=== PATIENT | female | born 1970 | race Caucasian/White ===

== ENCOUNTER 2017-02-08 08:51 | Emergency (ER) | payer OTHER ==
[~2017-02-08] VITALS: Ht 152.4 cm; Wt 56.3 kg
[~2017-02-08 08:51] MED LIST: CEPH-443 PO; CLOT30CR24 TOP; NITR-58 PO; PHEN-538 PO
[2017-02-08 08:54] VITALS: Ht 152.4 cm; Wt 56.3 kg
[2017-02-08] MEDS ORDERED: D-ME473S18 PO (10:50)
[2017-02-08] MEDS ORDERED: IBUP400T22 PO (10:52)
[2017-02-08] MEDS ORDERED: AZIT250T94 PO (10:52)
--- NOTE | 2017-02-08 10:53 | ERD ---
ER Documentation Chief Complaint Date/Time DATE: 02/08/17 TIME: 10:52 Chief Complaint COUGH X 2 WEEKS HPI This 46-year-old female presents with cough congestion for last 2 weeks. Denies fevers. Denies vomiting, abdominal pain, chest pain, shortness of breath. ROS All systems reviewed and are negative except as per history of present illness. Medications Home Meds Active Scripts Azithromycin* (Zithromax*) 250 Mg Tablet, 250 MG PO .ZPACK DIRECTED, #6 TAB TAKE 500 MG (2 TABS) THE FIRST DAY THEN 250 MG (1 TAB) DAYS 2-5 Prov:ERICKA ESCAMILLA MD 02/08/17 Ibuprofen* (Motrin*) 400 Mg Tab, 400 MG PO Q6, #15 TAB Prov:ERICKA ESCAMILLA MD 02/08/17 Dextromethorphan Hb-Promethazine Hcl (Promethazine DM Syrup) 473 Ml Syrup, 5 ML PO Q6H Y for COUGH, #4 OZ Prov:ERICKA ESCAMILLA MD 02/08/17 Cephalexin* (Keflex*) 500 Mg Capsule, 500 MG PO QID for 5 Days, CAP Prov:ERICKA ESCAMILLA MD 08/07/16 Clotrimazole* (Clotrimazole* AF) 1% - 30 Gm Cream.gm., 1 APPLIC TOP BID for 7 Days, TUB Prov:IMER WEBER NP 06/05/16 Phenazopyridine Hcl* (Pyridium*) 200 Mg Tab, 200 MG PO TID Y for URINARY PAIN, # 6 TAB Prov:IMER WEBER NP 06/05/16 Nitrofurantoin Monohyd Macrocr* (Macrobid*) 100 Mg Capsr, 100 MG PO BID for 7 Days, CAP Prov:IMER WEBER NP 06/05/16 Allergies Allergies: Coded Allergies: No Known Allergy (Verified , 05/15/10) PMhx/Soc History of Surgery: Yes ( section) Anesthesia Reaction: No Hx Neurological Disorder: No Hx Respiratory Disorders: No Hx Cardiac Disorders: No Hx Psychiatric Problems: No Hx Miscellaneous Medical Probl: No Hx Alcohol Use: Yes (occasionally) Hx Substance Use: No Hx Tobacco Use: No Physical Exam Vitals Vital Signs Date Time Temp Pulse Resp B/P Pulse Ox O2 Delivery O2 Flow Rate FiO2 02/08/17 08:54 98.1 84 18 126/57 99 Physical Exam Const: [] Alert, [id number] per Head: Atraumatic Eyes: Normal Conjunctiva ENT: Normal External Ears, Nose and Mouth. TMs are decreased light reflex but no significant redness. Oropharynx appears normal Neck: Full range of motion..~ No meningismus. Resp: Clear to auscultation bilaterally. Slight rhonchi without rales, wheezing or retractions. Cardio: Regular rate and rhythm, no murmurs Abd: Soft, non tender, non distended. Normal bowel sounds Skin: No petechiae or rashes Back: No midline or flank tenderness Ext: No cyanosis, or edema Neur: Awake and alert Psych: Normal Mood and Affect Procedures/MDM Patient presents with URI symptoms for last 2 weeks was slightly productive cough without evidence of respiratory distress, hypoxemia.. She may have a lingering viral illness but given the duration and patient request will be treated empirically with Zithromax, promethazine and ibuprofen. The patient was stable with no new complaints during the ER course. Clinically, there is no current evidence to suggest meningitis, sepsis, acute abdomen, pneumonia, acute coronary syndrome, pulmonary embolism, or any other emergent condition appearing to require further evaluation or hospitalization. The patient should certainly return for any new or worsening symptoms per the aftercare instructions. They should otherwise follow-up with her primary care doctor for reevaluation this week. Departure Diagnosis: Primary Impression: Cough Condition: Stable Patient Instructions: Acute Bronchitis Additional Instructions: Recheck for new or worsening symptoms or primary care doctor. ERICKA ESCAMILLA MD Feb 08, 2017 10:53
== END 2017-02-08 11:05 | disposition home or self-care (01) ==
LOC: FTE 08:51
DX: R05 Cough (principal)
CPT/HCPCS: 99284

== ENCOUNTER 2017-10-03 08:22 | Emergency (ER) | payer OTHER ==
[~2017-10-03] VITALS: Ht 160 cm; Wt 60.2 kg
[~2017-10-03 08:22] MED LIST changes: +AZIT250T94 PO; +D-ME473S18 PO; +IBUP400T22 PO
[2017-10-03 08:23] VITALS: Ht 160 cm; Wt 60.2 kg
--- NOTE | 2017-10-03 08:52 | ERD ---
ER Documentation Chief Complaint Chief Complaint fever , cough , st ,ear pain x 2 days HPI 47y/o female patient previously healthy presents to the emergency department c/ o 7 days with progressive onset of acute respiratory symptoms including: productive cough, runny nose, chest congestion, wheezing, headache and general malaise. The patient has been taking OTC with mild relief of her symptoms, therefore is requesting a prescription for antibiotics Denies fever, chills, SOB, no chest pain or palpitations ROS SYSTEMIC symptoms: Subjective fever, chills, no night sweats, no weight loss EYE symptoms: No blurred vision, no eye discharge OTOLARYNGEAL symptoms: No hearing loss. No ear pain, no sore throat CARDIOVASCULAR symptoms: No chest pain or discomfort, no palpitations. PULMONARY symptoms: No dyspnea, dry cough cough, no wheezing. GASTROINTESTINAL symptoms: No abdominal pain, no nausea, no vomiting, no diarrhea MUSCULOSKELETAL symptoms: No arthralgias, no muscle aches. NEUROLOGY symptoms: No confusion, no syncope, no numbness or tingling. SKIN no rashes All systems reviewed and are negative except as per history of present illness. Medications Home Meds Active Scripts Prednisone (Prednisone) 20 Mg Tablet, 20 MG PO DAILY for 3 Days, TAB Prov:MARIA ISABEL STOVALL MD 10/03/17 Promethazine HCl/Codeine (Prometh-Codein 6.25-10 mg/5 ml) 5 Ml Syrup, 5 ML PO QHS for COUGH, #120 ML Prov:MARIA ISABEL STOVALL MD 10/03/17 Azithromycin* (Zithromax*) 250 Mg Tablet, 250 MG PO .SigifredoPAGAURI DIRECTED, #6 TAB TAKE 500 MG (2 TABS) THE FIRST DAY THEN 250 MG (1 TAB) DAYS 2-5 Prov:MARIA ISABEL STOVALL MD 10/03/17 Azithromycin* (Zithromax*) 250 Mg Tablet, 250 MG PO .SigifredoPAGAURI DIRECTED, #6 TAB TAKE 500 MG (2 TABS) THE FIRST DAY THEN 250 MG (1 TAB) DAYS 2-5 Prov:ERICKA ESCAMILLA MD 02/08/17 Ibuprofen* (Motrin*) 400 Mg Tab, 400 MG PO Q6, #15 TAB Prov:ERICKA ESCAMILLA MD 02/08/17 Dextromethorphan Hb-Promethazine Hcl (Promethazine DM Syrup) 473 Ml Syrup, 5 ML PO Q6H Y for COUGH, #4 OZ Prov:ERICKA ESCAMILLA MD 02/08/17 Cephalexin* (Keflex*) 500 Mg Capsule, 500 MG PO QID for 5 Days, CAP Prov:ERICKA ESCAMILLA MD 08/07/16 Clotrimazole* (Clotrimazole* AF) 1% - 30 Gm Cream.gm., 1 APPLIC TOP BID for 7 Days, TUB Prov:IMER WEBER NP 06/05/16 Phenazopyridine Hcl* (Pyridium*) 200 Mg Tab, 200 MG PO TID Y for URINARY PAIN, # 6 TAB Prov:IMER WEBER NP 06/05/16 Nitrofurantoin Monohyd Macrocr* (Macrobid*) 100 Mg Capsr, 100 MG PO BID for 7 Days, CAP Prov:IMER WEBER NP 06/05/16 Allergies Allergies: Coded Allergies: No Known Allergy (Verified , 05/15/10) PMhx/Soc History of Surgery: Yes ( section X3) Anesthesia Reaction: No Hx Neurological Disorder: No Hx Respiratory Disorders: No Hx Cardiac Disorders: No Hx Psychiatric Problems: No Hx Miscellaneous Medical Probl: No Hx Alcohol Use: Yes (occasionally) Hx Substance Use: No Hx Tobacco Use: No Smoking Status: Never smoker Physical Exam Vitals Vital Signs Date Time Temp Pulse Resp B/P Pulse Ox O2 Delivery O2 Flow Rate FiO2 10/03/17 09:38 71 18 128/62 100 Room Air 10/03/17 08:23 97.7 85 18 129/62 100 Physical Exam Patient is in no acute distress, vital signs stable. Alert and fully oriented. EYES: PERRLA, EOMI, Sclera and conjunctiva appear normal. EARS: Canals clear, tympanic membranes WNL THROAT: Normal oropharynx. NECK: Supple, No lymphadenopathy. Full ROM without pain or tenderness. HEART: RRR, no rubs, murmurs, clicks or gallops. LUNGS: Mild bibasilar rhonchi to auscultation. ABDOMEN: Soft, non-tender without masses or hepatosplenomegaly. EXTREMITIES: No edema bilaterally. MUSC: Full ROM, no deformity, normal back exam Procedures/MDM 47y/o female patient previously healthy, presents to the ED c/o worsening of respiratory symptoms for 7 days. Vital signs stable, Physical exam unremarkable except for mild rhonchi. Differential diagnosis include but not limited to: Bronchitis, URI, pneumonia, reactive airway disease. Physical examination and clinical presentation consistent most likely with URI, antibiotics not indicated at this time the patient was informed that most likely is a viral etiology but the patient insisted for a prescription for antibiotics. During the ED course the patient remained stable Results and medical impression discussed with patient. The patient will be discharged home with a Rx for azithromycin, promethazine with codeine. Side effects of prescribed narcotic medications (drowsiness, constipation, habituation) were reviewed. If symptoms persist, worsen or new symptoms develop, then patient is instructed to follow-up with the primary care provider. If the patient is unable to see the primary care provider, then return to the ED immediately. Departure Diagnosis: Primary Impression: Acute wheezy bronchitis Additional Impression: Abnormal respiratory sounds Condition: Stable Additional Instructions: Thank you very much for allowing us to participate in your care. Your health and safety is our top priority at [facility]. Have prescriptions filled and follow precisely the directions on the label. Follow-up with primary care provider during the next 4 days and bring all the information and medications prescribed. If illness has not improved in 2 days, then make an appointment with primary care provider. If the provider is unavailable, return to the Emergency Department immediately. MARIA ISABEL STOVALL MD Oct 03, 2017 08:52
[2017-10-03] MEDS ORDERED: PRED20TA PO (09:20)
[2017-10-03] MEDS ORDERED: AZIT250T94 PO (09:20)
[2017-10-03] MEDS ORDERED: PROM5SYR2 PO (09:20)
[2017-10-03 09:38] VITALS: BP 128/62; PULSE 71; RESP 18
== END 2017-10-03 09:40 | disposition home or self-care (01) ==
LOC: FTE 08:22
DX: J20.9 Acute bronchitis, unspecified (principal)
CPT/HCPCS: 99284

== ENCOUNTER 2018-11-25 12:21 | Emergency (ER) | payer OTHER ==
[~2018-11-25] VITALS: Ht 167.6 cm; Wt 63.2 kg
[~2018-11-25 12:21] MED LIST changes: +AZIT250T PO; -AZIT250T94 PO; +IBUP-1561 PO; -IBUP400T22 PO; +PRED20TA PO; +PROM5SYR2 PO
[2018-11-25 12:23] VITALS: BP 127/78; PULSE 85; RESP 20; Ht 167.6 cm; Wt 63.2 kg
[2018-11-25] MEDS ORDERED: LIDOCAINE 1% (MDV) 20 ML INJ SC ONE (13:00)
[2018-11-25] MEDS ORDERED: DIPHTH/TET/ACEL PERTUSS (ADULT) 0.5 ML VIAL IM* ONE (13:00)
[2018-11-25] MEDS ORDERED: CEPH-443 PO (14:39)
--- NOTE | 2018-11-25 14:48 | ERD ---
ER Documentation Chief Complaint Chief Complaint Complains of laceration to the left pinky finger HPI Patient is a 48-year-old female who presents the ER for concerns of a laceration to her left fifth digit. Patient states laceration occurred yesterday while opening a can around 2 PM. Patient states she was not able to come in for laceration yesterday given that she was unable to leave her family for the holidays. Patient denies any numbness or tingling. Patient is right-hand dominant. Patient denies any fevers or chills. Patient denies any previous fractures or dislocations. No recent travel. Patient does not recall her last tetanus vaccination. ROS All systems reviewed and are negative except as per history of present illness. Medications Home Meds Active Scripts Cephalexin* (Keflex*) 500 Mg Capsule, 500 MG PO BID for 7 Days, CAP Prov:MARC CUTLER PA-C 11/25/18 Prednisone (Prednisone) 20 Mg Tablet, 20 MG PO DAILY for 3 Days, TAB Prov:MARIA ISABEL STOVALL MD 10/03/17 Promethazine HCl/Codeine (Prometh-Codein 6.25-10 mg/5 ml) 5 Ml Syrup, 5 ML PO QHS for COUGH, #120 ML Prov:MARIA ISABEL STOVALL MD 10/03/17 Azithromycin* (Zithromax*) 250 Mg Tablet, 250 MG PO .ZPACK DIRECTED, #6 TAB TAKE 500 MG (2 TABS) THE FIRST DAY THEN 250 MG (1 TAB) DAYS 2-5 Prov:MARIA ISABEL STOVALL MD 10/03/17 Azithromycin* (Zithromax*) 250 Mg Tablet, 250 MG PO .ZPACK DIRECTED, #6 TAB TAKE 500 MG (2 TABS) THE FIRST DAY THEN 250 MG (1 TAB) DAYS 2-5 Prov:ERICKA ESCAMILLA MD 02/08/17 Ibuprofen* (Motrin*) 400 Mg Tab, 400 MG PO Q6, #15 TAB Prov:ERICKA ESCAMILLA MD 02/08/17 Dextromethorphan Hb-Promethazine Hcl (Promethazine DM Syrup) 473 Ml Syrup, 5 ML PO Q6H PRN for COUGH, #4 OZ Prov:ERICKA ESCAMILLA MD 02/08/17 Cephalexin* (Keflex*) 500 Mg Capsule, 500 MG PO QID for 5 Days, CAP Prov:ERICKA ESCAMILLA MD 08/07/16 Clotrimazole* (Clotrimazole* AF) 1% - 30 Gm Cream.gm., 1 APPLIC TOP BID for 7 Days, TUB Prov:IMER WEBER NP 06/05/16 Phenazopyridine Hcl* (Pyridium*) 200 Mg Tab, 200 MG PO TID PRN for URINARY PAIN, #6 TAB Prov:IMER WEBER R DEVELOPER 06/05/16 Nitrofurantoin Monohyd Macrocr* (Macrobid*) 100 Mg Capsr, 100 MG PO BID for 7 Days, CAP Prov:IMER WEBER R DEVELOPER 06/05/16 Allergies Allergies: Coded Allergies: No Known Allergy (Verified , 05/15/10) PMhx/Soc History of Surgery: Yes ( section X3) Anesthesia Reaction: No Hx Neurological Disorder: No Hx Respiratory Disorders: No Hx Cardiac Disorders: No Hx Psychiatric Problems: No Hx Miscellaneous Medical Probl: No Hx Alcohol Use: Yes (occasionally) Hx Substance Use: No Hx Tobacco Use: No Smoking Status: Never smoker FmHx Family History: No diabetes Physical Exam Vitals Vital Signs Date Temp Pulse Resp B/P (MAP) Pulse Ox O2 O2 Flow FiO2 Time Delivery Rate 11/25/18 98.3 85 20 127/78 98 12:23 (94) Physical Exam GENERAL: Well-developed, well-nourished female. Appears in no acute distress. HEAD: Normocephalic, atraumatic. EYES: Pupils are equally reactive bilaterally. EOMs grossly intact. No conjunctival erythema. NECK: Supple. No meningismus. Normal range of motion of the neck. LUNG: No respiratory distress. No abdominal retraction, no nasal phlegm, no tripoding EXTREMITIES: Equal pulses bilaterally. No peripheral clubbing, cyanosis or edema. No unilateral leg swelling. NEUROLOGIC: Alert and oriented. Moving all four extremities without any dif ficulty. Normal speech. Steady gait. SKIN: 2 cm curvilinear laceration noted to the distal tip of the fifth pinky digi on the volar surface. Sub-cutaneous tissue protruding out of the wound. Patient able to bend the DIP, PIP and MCP joints without any difficulty. Normal pulses. Normal cap refill. Results 24 hrs Current Medications Medications Dose Sig/Ulises Start Time Status Last (Trade) Ordered Route PRN Stop Time Admin Dose Reason Admin Diphtheria/ 0.5 ml ONCE ONCE 11/25/18 DC 11/25/18 Tetanus/Acell IM* 13:00 13:16 Pertussis 11/25/18 (Adacel) 13:01 Lidocaine 20 ml ONCE ONCE 11/25/18 DC (Xylocaine SC 13:00 1% (Mdv) 20 11/25/18 ml) 13:01 Procedures/MDM ED COURSE: The patient was stable throughout ED course. I kept the patient and/or family informed of laboratory and diagnostic imaging results throughout the ED course. DIAGNOSTIC IMAGING: Read by radiologist. Patient: DM SANCHES : 1970 Age: 48 Sex: F MR #: [id number] DOS: 11/25/18 1258 Ordering MD: MARC CUTLER PA-C Location: [facility] Room/Bed: PROCEDURE: XR Left pinky finger CLINICAL INDICATION: Laceration TECHNIQUE: AP, oblique, and lateral radiographs were submitted. COMPARISON: None FINDINGS: Osseous structures: appear well mineralized and intact with no fracture or destructive process identified. Joint spaces: are well maintained, with no significant spurring, erosion or joint effusion evident. Soft tissues: There is soft tissue prominence ventral lateral to the distal phalanx of the left pinky finger. IMPRESSION: 1. No fracture or dislocation is evident. 2. Soft tissue prominence ventral lateral to the distal phalanx of the left pinky finger. Physician Julia Date Time Electronically viewed and signed by Physician Julia on 11/25/2018 13:23 RH/ CC: MARC CUTLER PA-C [id number] PROCEDURES: Laceration Repair: The patient was verbally consented prior to procedure. Patient was explained the risks, benefits and alternatives to this procedure. Length: 2 cm Irrigation: Thorough irrigation was performed with normal saline and adequate pressure. Inspection: The wound was thoroughly explored and no foreign bodies, deep tissue, tendon or structural injuries were noted. Anesthesia: 3 cc of 1% lidocaine were used to perform a digital block of the affected digit. Repair: The area was prepared and draped in the usual sterile manner with the wound exposed. 6 5-0 Prolene sutures were placed with good wound closure and wound approximation. Bleeding was minimal. The patient tolerated the procedure well with no complications. The wound was dressed with bacitracin and sterile gauze. The patient was neurovascularly intact post-procedure. Post-procedural wound care was discussed with the patient. MEDICATIONS GIVEN: Tdap Patient tolerated medication well with no adverse reactions. Patient reported improvement in pain. MEDICAL DECISION MAKING: This is a 48-year-old female presents ER for concerns of laceration to her left knee digit which occurred one day ago. Vital signs were reviewed. Patient was afebrile. Initially plan was to defer suture repair given the patient's wound has been open for greater than 24 hours however given that bleeding persisted, suture repair was performed. The risks versus benefits of suture repair in the setting of the delayed wound repair were discussed. Patient was given strict precautions and advised to monitor symptoms closely for any signs of infection. Patient will be treated with Keflex. 6 sutures were placed loosely throughout the affected area. The patient had good wound closure and wound approximation. Patient tolerated wound closure without any complications. Tetanus vaccination was given today. At this time, patient's presentation is most consistent with a laceration. Low suspicion for deep space infection, fracture, dislocation, osteomyelitis, neurovascular injury, tendon or ligament injury. Patient was nontoxic, non-ill appearing prior to discharge. PRESCRIPTIONS: Keflex DISCHARGE: At this time, the patient is stable for discharge and outpatient management. Post-procedural wound care was discussed with the patient. The patient has been advised to return to the ER in 2 days for a wound check and then again in 7 days for suture removal. I have instructed the patient to promptly return to the ER for any new or worsening symptoms including increasing pain, fever, warmth, redness or swelling. The patient and/or family expressed understanding of and agreement with this plan. All questions were answered. Home care instructions were provided. Disclaimer: Inadvertent spelling and grammatical errors are likely due to EHR/dictation software use and do not reflect on the overall quality of patient care. Also, please note that the electronic time recorded on this note does not necessarily reflect the actual time of the patient encounter. Departure Diagnosis: Primary Impression: Laceration Condition: Stable Patient Instructions: Laceration, Hand Additional Instructions: Take antibiotics as prescribed. Wound recheck advised in 2 days. Call your primary care doctor TOMORROW for an appointment during the next 1-2 days.See the doctor sooner or return here if your condition worsens before your appointment time. MARC CUTLER PA-C Nov 25, 2018 14:48
== END 2018-11-25 14:46 | disposition home or self-care (01) ==
LOC: FTE 12:21
DX: S61.217A Laceration without foreign body of left little finger without damage to nail, initial encounter (principal); W26.8XXA Contact with other sharp object(s), not elsewhere classified, initial encounter; Y92.9 Unspecified place or not applicable; Z23 Encounter for immunization
CPT/HCPCS: 12001; 73140; 90471; 90715; Z7502; Z7610

== ENCOUNTER 2018-11-28 17:02 | Emergency (ER) | END 2018-11-28 18:24 | disposition home or self-care (01) ==